=== PATIENT | male | born 1965 | race Caucasian/White ===

== ENCOUNTER 2016-10-15 15:15 | Emergency (ER) | payer MEDICAID ==
[~2016-10-15] VITALS: Ht 177.8 cm; Wt 97.1 kg
[2016-10-15 15:35] VITALS: BP 144/87
== END 2016-10-15 18:28 | disposition home or self-care (01) ==
LOC: ED 15:15
DX: S09.90XA Unspecified injury of head, initial encounter (principal); V49.9XXA Car occupant (driver) (passenger) injured in unspecified traffic accident, initial encounter; Y93.89 Activity, other specified; Y99.8 Other external cause status; Y92.89 Other specified places as the place of occurrence of the external cause
CPT/HCPCS: 90715; J1885

== ENCOUNTER 2018-01-07 05:57 | Inpatient (IN) | payer MEDICAID ==
[~2018-01-07] VITALS: Ht 175.3 cm; Wt 95.4 kg
[2018-01-07 06:54] LABS: BASOPHIL % 0.3 % (0-2); PLATELET COUNT 261 x10^3mcL (130-400); RED CELL DISTRIBUTION WIDTH 12.8 % (11.5-14.5)
[2018-01-07 07:14] LABS: ALKALINE PHOSPHATASE 59 U/L (46-116); AST/SGOT 21 U/L (15-37); BILIRUBIN TOTAL 0.6 mg/dL (0.20-1.00); CARBON DIOXIDE 22.6 mmol/L (21-32); CHLORIDE SERUM 100 mmol/L (98-107); LIPASE 150 IU/L (73-393); POTASSIUM SERUM 4.1 mmol/L (3.5-5.1); SODIUM SERUM 134 mmol/L (136-145)
[2018-01-07 07:23] LABS: ALBUMIN 4.1 g/dL (3.4-5.0); ALT/SGPT 37 U/L (16-63); AMYLASE 68 U/L (25-115); CALCIUM 9.1 mg/dL (8.5-10.1); GFR1 > 60 mL/min; GLUCOSE SERUM 135 mg/dL (74-106)
[2018-01-07 09:15] LABS: UA SPECIFIC GRAVITY 1.015 (1.005-1.035); microscopic required? YES; urine erythrocyte 1+ (NEGATIVE)
[2018-01-07 09:30] LABS: AMPHETAMINE QUAL UR NONE DETECTED (See below)
[2018-01-07 09:43] LABS: CHOLESTEROL/HDL RATIO 3.7; MAGNESIUM 2.2 mg/dL (1.8-2.4); PHOSPHOROUS 3.1 mg/dL (2.5-4.9)
[2018-01-07 09:50] LABS: T3 TOTAL 1.43 ng/mL
[2018-01-07 10:04] LABS: FREE T4 1.04 ng/dL (0.76-1.46); FREE THYROXINE INDEX 1.7 ug/dL (1.4-4.5); T4(THYROXINE) 5.6 ug/dL (4.7-13.3)
[2018-01-07 10:19] VITALS: BP 154/87
[2018-01-07 10:27] VITALS: BP 154/87
[2018-01-07 17:32] VITALS: BP 135/80
[2018-01-07 20:30] VITALS: BP 139/75
[2018-01-08 05:19] VITALS: BP 136/79
[2018-01-08 09:24] VITALS: BP 122/77
[2018-01-08 09:40] LABS: CALCIUM 7.9 mg/dL (8.5-10.1); CARBON DIOXIDE 26.9 mmol/L (21-32); GFR1 > 60 mL/min; GLUCOSE SERUM 124 mg/dL (74-106); MAGNESIUM 1.9 mg/dL (1.8-2.4); PHOSPHOROUS 2.5 mg/dL (2.5-4.9)
[2018-01-08 09:43] LABS: BASOPHIL % 0.1 % (0-2); PLATELET COUNT 234 x10^3mcL (130-400); RED CELL DISTRIBUTION WIDTH 13.3 % (11.5-14.5)
[2018-01-08 10:03] LABS: CHLORIDE SERUM 103 mmol/L (98-107); POTASSIUM SERUM 3.5 mmol/L (3.5-5.1); SODIUM SERUM 134 mmol/L (136-145)
[2018-01-08] MEDS ORDERED: NORCO1 TA2 PO (14:30)
[2018-01-08] MEDS ORDERED: EPZICOM1 TAB PO (14:30)
[2018-01-08 14:55] VITALS: BP 122/77
== END 2018-01-08 15:23 | disposition home or self-care (01) | DRG 465 ==
LOC: ED 05:57 → MU 08:26
PROVIDERS: Emergency Medicine; Internal Medicine
DX: N13.2 Hydronephrosis with renal and ureteral calculous obstruction (principal); R31.9 Hematuria, unspecified; R73.03 Prediabetes
CPT/HCPCS: 83880; 84439; 90658; J1885; J2270; J2405; J3010; J7030; Q0092